=== PATIENT | male | born 1960 | race Two or more races ===

== ENCOUNTER 2021-02-21 08:00 | Outpatient (CLI) | payer OTHER ==
[2021-02-21] MEDS ORDERED: KETO10TA2 PO (18:54)
[2021-03-15] MEDS ORDERED: ACETAMINOPHEN650 M2 (19:23)
== END 2021-02-21 08:30 | disposition home or self-care (01) ==
LOC: PPH VACUNA 08:00
PROVIDERS: ATTEND Emergency Medicine Pediatric Emergency Medicine
DX: Z23 Encounter for immunization (principal)

== ENCOUNTER 2021-02-21 15:27 | Emergency (ER) | payer OTHER ==
[~2021-02-21] VITALS: Ht 170.2 cm; Wt 100.7 kg
[2021-02-21] MEDS ORDERED: KETO10TA2 PO (18:54)
== END 2021-02-21 19:02 | disposition home or self-care (01) ==
LOC: ER 15:27
DX: M25.561 Pain in right knee (principal)

== ENCOUNTER 2021-08-03 19:31 | Emergency (ER) | payer OTHER ==
[~2021-08-03] VITALS: Ht 170.2 cm; Wt 96.2 kg
[~2021-08-03 19:31] MED LIST: ACETAMINOPHEN650 M2; KETO10TA2 PO
[2021-08-03] MEDS ORDERED: ZESTRIL10 M1 PO (19:43)
[2021-08-03] MEDS ORDERED: HYDROCHLOROTHIA25 MG PO (19:44)
== END 2021-08-04 01:25 | disposition home or self-care (01) ==
LOC: ER 19:31
DX: R60.0 Localized edema (principal)

== ENCOUNTER 2022-03-29 08:34 | Inpatient (IN) | payer OTHER ==
[~2022-03-29] VITALS: Ht 170.2 cm; Wt 97.5 kg
[~2022-03-29 08:34] MED LIST changes: +HYDROCHLOROTHIA25 MG PO; +ZESTRIL10 M1 PO
[2022-04-06] MEDS ORDERED: PERCOCET 5-3251 EACH PO (17:15)
[2022-04-06] MEDS ORDERED: ELIQUIS2.5 MG PO (17:15)
[2022-04-06] MEDS ORDERED: DUI500 PO (17:15)
[2022-04-07] MEDS ORDERED: PERCOCET 5-3251 EACH PO (07:44)
[2022-04-07] MEDS ORDERED: DUI500 PO (07:45)
[2022-04-07] MEDS ORDERED: ELIQUIS2.5 MG PO (07:45)
== END 2022-04-07 14:17 | DRG 470 ==
LOC: ADM 03-30 07:45 → EDSTATUS 03-30 07:45 → SURH 04-04 06:49 → O/R 04-04 06:49 → SURG 04-04 07:00 → SURH 04-04 14:35
PROVIDERS: ADMIT Orthopaedic Surgery; ATTEND Orthopaedic Surgery
PROC: 0SRD0J9 Replacement of Left Knee Joint with Synthetic Substitute, Cemented, Open Approach (ICD-10-PCS; principal; 2022-04-04 07:00)
PROC: 0MNP0ZZ Release Left Knee Bursa and Ligament, Open Approach (ICD-10-PCS; 2022-04-05)
DX: M17.12 Unilateral primary osteoarthritis, left knee (principal); Z20.822 Contact with and (suspected) exposure to COVID-19

== ENCOUNTER 2022-11-22 07:36 | Inpatient (IN) | payer OTHER ==
[~2022-11-22] VITALS: Ht 170.2 cm; Wt 85.7 kg
[~2022-11-22 07:36] MED LIST changes: +DUI500 PO; +ELIQUIS2.5 MG PO; +PERCOCET 5-3251 EACH PO
[2022-11-29] MEDS ORDERED: DUI500 PO (08:09)
[2022-11-29] MEDS ORDERED: ELIQUIS2.5 MG PO (08:09)
[2022-11-29] MEDS ORDERED: PERCOCET 5-3251 EACH PO (08:09)
[2022-11-30] MEDS ORDERED: PERCOCET 5-3251 EACH PO (15:02)
== END 2022-11-30 17:38 | DRG 470 ==
LOC: O/R 11-28 06:37 → SURG 11-28 06:37
PROVIDERS: ADMIT Orthopaedic Surgery; ATTEND Orthopaedic Surgery
PROC: 0SRC0J9 Replacement of Right Knee Joint with Synthetic Substitute, Cemented, Open Approach (ICD-10-PCS; principal; 2022-11-28 09:45)
DX: M17.11 Unilateral primary osteoarthritis, right knee (principal); M22.11 Recurrent subluxation of patella, right knee; E66.9 Obesity, unspecified